=== PATIENT | female | born 1980 ===

== ENCOUNTER 2018-07-29 20:46 | Emergency (ER) | payer OTHER ==
[2018-07-29 20:55] VITALS: BP 120/67; PULSE 75; RESP 18; TEMP 97.3; O2SAT 100
--- NOTE | 2018-07-29 21:33 | ED PDOC ---
HPI: Allergic Reaction Time Seen by Provider: 07/29/18 20:52 Chief Complaint (Nursing): Abnormal Skin Integrity Chief Complaint (Provider): Allergic Reaction History Per: Patient History/Exam Limitations: no limitations Onset/Duration Of Symptoms: Hrs Current Symptoms Are (Timing): Still Present Associated Symptoms: Skin Rash Additional Complaint(s): 38 year old female presents to the ED reporting of hives she developed towards her face over the last couple of hours and now on her forearms. Patient denies intraoral swelling, difficulty swallowing or breathing. Of note, patient is 14 weeks with no complications. She is just finishing a course of amox for sinusitis. Past Medical History Reviewed: Historical Data, Nursing Documentation, Vital Signs Vital Signs: Last Vital Signs Temp 97.3 F L 07/29/18 20:52 Pulse 75 07/29/18 20:52 Resp 18 07/29/18 20:52 BP 120/67 07/29/18 20:52 Pulse Ox 100 07/29/18 20:52 - Medical History PMH: No Chronic Diseases - Family History Family History: States: Unknown Family Hx - Allergies Allergies/Adverse Reactions: Allergies Allergy/AdvReac Type Severity Reaction Status Date / Time No Known Allergies Allergy Verified 07/29/18 20:50 Review of Systems ROS Statement: Except As Marked, All Systems Reviewed And Found Negative Constitutional: Negative for: Fever Skin: Positive for: Rash Physical Exam - Reviewed Nursing Documentation Reviewed: Yes Vital Signs Reviewed: Yes - Physical Exam Appears: Positive for: Well, Non-toxic, No Acute Distress Head Exam: Positive for: ATRAUMATIC, NORMAL INSPECTION, NORMOCEPHALIC Skin: Positive for: Rash (urticarial rash noteed to face and couple scattered area to volar forearms) ENT: Positive for: Normal ENT Inspection (no uvula swelling, no tongue swelling, airway widely patent) Respiratory: Positive for: Normal Breath Sounds. Negative for: Stridor, Wheezing Neurological/Psych: Positive for: Awake, Alert, Normal Tone, Oriented (x3) - ECG O2 Sat by Pulse Oximetry: 100 (RA) Pulse Ox Interpretation: Normal Disposition - Clinical Impression Clinical Impression: Allergic reaction - Patient ED Disposition Is Patient to be Admitted: No Counseled Patient/Family Regarding: Diagnosis - Disposition Disposition: Routine/Home Disposition Time: 22:14 Condition: STABLE Instructions: Allergy Skin Testing, Drug Allergy Forms: Jimy Delcid ([place]), [facility] ED School/Work Excuse Medical Decision Making Medical Decision Making: Time: 2115 Plan: Benadryl PO and observe for half hour Patient advised to discontinue usage of of Amoxicillin and continue with Benadryl every 8hrs and Pepcid. Counseling has been provided and patient is in agreement. Return if symptoms persist or acutely worsen. Scribe Attestation: Documented by Etelvina Gale acting as a scribe for Carlotta Major PA-C. Provider Scribe Attestation: All medical record entries made by the Scribe were at my direction and personally dictated by me. I have reviewed the chart and agree that the record accurately reflects my personal performance of the history, physical exam, medical decision making, and the department course for this patient. I have also personally directed, reviewed, and agree with the discharge instructions and disposition.
== END 2018-07-29 22:18 | disposition home or self-care (01) ==
LOC: H.ER 20:46
DX: T78.40XA Allergy, unspecified, initial encounter (principal)